=== PATIENT | male | born 1945 | race Caucasian/White ===

== ENCOUNTER 2016-11-12 01:51 | Day surgery (SDC) | payer MEDICARE ==
[~2016-11-12] VITALS: Ht 180.3 cm; Wt 107.2 kg
[2016-11-12] VITALS (16 sets, daily range): BP systolic 127–166; BP diastolic 59–98; PULSE 85–94; RESP 14–21; O2SAT 88–95
[~2016-11-12 01:51] MED LIST: ALBU18HF INH; BUPR150T8 PO; BUTA1CAP42 PO; INSU100C8 SUBQ; INSU100V27 SQ; LEVO200T6 PO; LEVO50TA83 PO; LIOT5TAB6 PO; LISI-567 PO; LTRS15C EXT; MULT1CAP33 PO; NPH,100V10 SUBQ; PARO40TA3 PO; PRAV40TA PO; SELE200T11 PO
[2016-11-12] MEDS ORDERED: 0.9% Sodium Chloride 500 ML IV SCH ×2 (07:10→10:00)
[2016-11-12] MEDS ORDERED: Insulin Human REGular-Omnicell 100 Unit/mL ONE (08:03)
--- NOTE | 2016-11-12 09:48 | NUR ---
Admitted for a heart cath today by Dr Ch for a positive stress test, and chronic shortness of breath with any exertion. RBS of 277 checked at bedside and a documented issue with IV contrast per remote history per patient - states, "shut down my kidney's" Pt could not remember the year he had this response to contrast. Dr Ch notified of the RBS and the IV contrast complication. NS 500cc bolus given - to pre-hydrate prior to receiving contrast. Regular insulin 5 Units given prior to procedure. Pt has a history of a prostate surgery and since that removal has been having to wear a attends. Condom catheter placed for today's procedure.
[2016-11-12] MEDS ORDERED: Nitroglycerin 50,000 mcg/250 mL D5W Premix IV ONE (09:58)
[2016-11-12] MEDS ORDERED: Heparin 5,000 Units/500 mL NS Premix IV ONE (09:58)
[2016-11-12] MEDS ORDERED: Heparin 1,000 Units/500 mL NS Premix IV ONE (09:58)
[2016-11-12] MEDS ORDERED: Heparin 1,000 Unit/mL 10 mL Inj ONE (09:58)
[2016-11-12] MEDS ORDERED: 0.9% Sodium Chloride 1,000 ML IV ONE (10:00)
[2016-11-12] MEDS ORDERED: fentaNYL-PF 50 mCg/mL 2 mL Inj ONE (10:15)
[2016-11-12] MEDS ORDERED: Atropine 1 mg/10 mL (Code) Syringe ONE (10:51)
--- NOTE | 2016-11-12 11:40 | DI95 ---
[address] [address] INTERVENTIONAL CARDIAC CATHETERIZATION PATIENT: LUZMA HANNA : 1945 MR#: [id number] ADMIT: 11/12/2016 JOB ID: [id number] DATE: 11/12/2016 PROCEDURE: Percutaneous intervention on the right coronary artery. INDICATION: Abnormal stress test. PROCEDURAL DETAILS: The procedure was done via right femoral approach using a 6-Nauruan system. A Run-through wire was used to cross a tight 90% lesion in the mid to proximal RCA. This appears to be at least moderately calcified. This lesion was pre-dilated with a 1.5 and a 2.0 balloon. The 2.0 balloon would not cross. We changed to a 1.5 balloon. The lesion did not yield with a 1.5 balloon. At this point, we decided to terminate the procedure. The patient will be brought back at a subsequent date and we will do a rotablation of his right coronary artery. Case was discussed with Dr. Ch.
[2016-11-12] MEDS ORDERED: 0.9% Sodium Chloride 1,000 ML IV PRN (11:47)
[2016-11-12] MEDS ORDERED: 0.9% Sodium Chloride 1,000 ML IV SCH (11:47)
[2016-11-12] MEDS ORDERED: 0.9% Sodium Chloride 250 ML IV PRN (11:47)
--- NOTE | 2016-11-12 11:49 | NUR ---
Received Received from stores laborer at 1135. VSS. Right groin stable. Denies pain. IVF per orders. Family at bedside. Groin precautions reviewed and verbalizes understanding frequent reminders given. SPO2 92-96% on O2 at 3L BNC and states feels like he is breathing ok. Taking po without nausea. Continue to monitor per orders.
[2016-11-12] MEDS ORDERED: Atropine 1 mg/10 mL (Code) Syringe IVPUSH PRN (11:50)
[2016-11-12] MEDS ORDERED: Ondansetron 2 mg/mL 2 mL Inj IVPUSH PRN (11:50)
[2016-11-12] MEDS ORDERED: HYDROcodone-APAP 5-325 mg Tablet PO PRN (11:50)
--- NOTE | 2016-11-12 16:20 | NUR ---
Discharged from [facility] following a recovery post heart cath and additional post IV hydration post heart cath. Planned BMP draw as outpatient tomorrow 11/13/16 - lab slip given. Home care instructions reviewed with both patient and patient's [id number] - Haley. Patient is to return for a planned intervention with Dr Stafford for a lesion in his RCA. Dr Stafford's office to contact patient at his home with a date and time for this procedure. Right groin puncture site is sealed with a Perclose device - post heart cath. Right femoral artery site is soft and non-tender at time of discharge from [facility]. Heart Rhythm is in the 90's - No ectopy and no chest pain/pressure. Sa02 at time of Discharge on room air without physical exertion is 90. Advised pt to follow up with his PCP regarding evaluation of oxygenation during the day - Patient has a C-pap at night.
[2016-11-20] MEDS ORDERED: SELE200T11 PO (14:54)
[2016-11-20] MEDS ORDERED: BUTA1CAP44 PO (14:54)
--- NOTE | 2017-01-26 15:15 | CS94 ---
[address] [address] DIAGNOSTIC CARDIAC CATHETERIZATION PATIENT: LUZMA HANNA : 1945 MR#: [id number] ADMIT: 11/12/2016 JOB ID: [id number] SERVICE DATE: 11/12/2016 INDICATION: The patient is a delightful, 71-year-old male who came in with symptoms of exertional chest heaviness and shortness of breath. The patient underwent a stress test which demonstrated reversible perfusion defect in the inferior, inferolateral wall. Based on those findings, we decided to proceed with coronary angiography. CONSENT: The patient was explained the risks, benefits, and alternatives of the procedure. Informed signed consent was obtained and placed in the chart. PROCEDURE: Patient was brought to the general laborer and placed on the cath table. Both groins were prepped and draped in the usual sterile manner. One percent lidocaine was inserted in the right groin area. The topical anesthesia was obtained. Using a modified Seldinger technique, a 6-[place]zech arterial sheath was placed in the right femoral artery with no difficulty. The FL4 catheter was used to engage the left main coronary artery. Multiple views of the left coronary artery were obtained in multiple projections. Subsequently, FR4 catheter was used to engage the right coronary artery and multiple views of the right coronary artery were obtained in multiple projections. A pigtail catheter was advanced in the LV and placed in the left ventricle. Left ventricular hemodynamics were obtained. FINDINGS: Left ventricular hemodynamics: The left ventricular pressure was 169/9 with left ventricular end-diastolic pressure of 21 mmHg. There was no left ventricular to aortic gradient. CORONARY ANGIOGRAPHY: The left main coronary artery is moderate-sized vessel which bifurcates into left anterior descending artery and left circumflex coronary artery. The left anterior descending artery is mildly diffusely calcified in the proximal mid and distal segments. No high-grade stenosis was noted in the left anterior descending artery. The diagonal branches are identified which bifurcate into superior and inferior limb. Again, no significant disease was noted. The left circumflex is a small to medium sized vessel, which is mildly diffusely diseased in the proximal segment. The OM branches arising from the left circumflex again demonstrate no significant disease. The right coronary artery is a dominant vessel which is very heavily calcified in the mid RCA with a focal stenosis of 70% to 80%. The PDA and posterolateral branches are identified and demonstrate no significant stenosis. The KIRA-3 flow is mildly reduced in the right coronary artery. IMPRESSION: 1. Single-vessel coronary artery disease with a focal stenosis of 70% to 80% of the mid RCA with heavy calcification. 2. Mild diffuse calcification of the left anterior descending artery and left circumflex coronary artery. 3. Elevated left ventricular end-diastolic pressure of 21 mmHg.
== END 2016-11-12 23:59 | disposition home or self-care (01) ==
LOC: SOUO 01:51
PROVIDERS: ATTEND Internal Medicine Cardiovascular Disease
DX: I25.10 Atherosclerotic heart disease of native coronary artery without angina pectoris (principal); I25.84 Coronary atherosclerosis due to calcified coronary lesion; E10.9 Type 1 diabetes mellitus without complications; E78.5 Hyperlipidemia, unspecified; I10 Essential (primary) hypertension; G47.33 Obstructive sleep apnea (adult) (pediatric); E03.9 Hypothyroidism, unspecified; Z72.0 Tobacco use
CPT/HCPCS: 92920; 93458; 99152; 99153; C1725; C1760; C1769; C1887; J1644; J1815; J2250; J3010; J7030; Q9967

== ENCOUNTER 2016-11-21 00:10 | Day surgery (SDC) | payer MEDICARE ==
[2016-11-21] VITALS (16 sets, daily range): BP systolic 136–157; BP diastolic 60–80; PULSE 74–92; RESP 14–24; O2SAT 85–98
[~2016-11-21] VITALS: Ht 177.8 cm; Wt 107.3 kg
[~2016-11-21 00:10] MED LIST changes: -BUTA1CAP42 PO; +BUTA1CAP44 PO
[2016-11-21] MEDS ORDERED: 0.9% Sodium Chloride 500 ML IV ONE (08:55)
[2016-11-21 13:10] LABS: BASOPHILS % (AUTO) 0.3 % (0-3); EOSINOPHILS % (AUTO) 6.8 % (0-5); MONOCYTES % (AUTO) 6.5 % (4-12); Mean Corpuscular Hemoglobin 32.3 pg (27.0-35.0); Mean Corpuscular Volume 96.1 fL (81-100); NEUTROPHILS % (AUTO) 71.7 % (40-74); Platelet Count 190 bil/L (150-400)
[2016-11-21] MEDS ORDERED: Heparin 1,000 Unit/mL 10 mL Inj ONE ×2 (13:43→14:05)
[2016-11-21] MEDS ORDERED: Heparin 1,000 Units/500 mL NS Premix IV ONE (13:43)
[2016-11-21] MEDS ORDERED: Heparin 5,000 Units/500 mL NS Premix IV ONE (13:43)
[2016-11-21] MEDS ORDERED: Nitroglycerin 50,000 mcg/250 mL D5W Premix IV ONE (14:05)
[2016-11-21] MEDS ORDERED: Verapamil 2.5 mg/mL 2 mL Inj ONE (14:05)
[2016-11-21] MEDS ORDERED: Atropine 1 mg/10 mL (Code) Syringe ONE (14:05)
[2016-11-21] MEDS ORDERED: 0.9% Sodium Chloride 1,000 ML ONE (14:06)
[2016-11-21] MEDS ORDERED: Phenylephrine/NS-PF 100 mCg/mL 5 mL Syringe IVPUSH ONE (14:39)
[2016-11-21] MEDS ORDERED: fentaNYL-PF 50 mCg/mL 2 mL Inj ONE (14:41)
--- NOTE | 2016-11-21 17:28 | DI95 ---
[address] [address] INTERVENTIONAL CARDIAC CATHETERIZATION PATIENT: LUZMA HANNA : 1945 MR#: [id number] ADMIT: 11/21/2016 JOB ID: [id number] PROCEDURE: Rotablation followed by stenting of the right coronary artery. HISTORICAL DETAILS: This gentleman has a heavily calcified lesion in the mid right coronary artery. The right coronary artery is a large dominant vessel. This lesion was not amenable to balloon angioplasty. The patient came in today for a planned rotablation of his right coronary artery. PROCEDURAL DETAILS: The procedure was done via right femoral approach using a 7-[place] Yudi guide. A Runthrough wire and a FineCross catheter were used to cross this lesion. The FineCross catheter did not go across this lesion; however it allowed us to use a Rota wire to cross this lesion. Following that, a 1.25 bridger was used to cross this lesion. It was fairly difficult even for this small bridger to cross this lesion. Nevertheless, it modified the lesion enough for us to deliver a 2.0 balloon and then subsequently larger diameter balloons. Following that, a 4.0 x 15 mm stent was placed in the mid RCA and a 4 x 18 mm stent proximal to it. Because of heavy calcification there was a slight geographic miss which was tackled with a 4.0 x 8 mm overlapping stent. Final angiographic results in this vessel were excellent. The patient is advised to stay on dual antiplatelet therapy for at least six months preferably one year post procedure.
[2016-11-21] MEDS ORDERED: Albuterol 2.5 mg/3 mL Inhalation Solution NEB PRN (19:25)
--- NOTE | 2016-11-21 20:18 | NUR ---
MATTY Admit to [facility] bed 7 at 1230. Son at bedside. Patient denies pain. HL x 2 placed and labs obtained. Consent pr . History and medication reviewed. patient poor historian and unsure of what medications he takes. Did not bring an up to date list. Bolos with 500 cc NS as ordered. Condom cath placed. Pre-procedure teaching done and questions answered. Return from woods laborer at 1635. Perclose to right groin. No bleeding or hematoma. Pedal pulses present. Continues to deny pain. Bedrest x 2 hours. Taking PO. Condom cath dislodged and patient incontinent urine. Bedding changed and brief applied. Transferred to room 2004 at 1945. Report to receiving RN.
[2016-11-21] MEDS: Insulin REGULAR SS Low-Dose SUBQ SCH (20:45)
--- NOTE | 2016-11-21 20:45 | NUR ---
Transfer from [facility] to [facility] Room 2004 Pt arrived to room 2004 at approximately 2044 in a bed from [facility]. Pt had a new bag of NS hanging. Groin site was slightly bruised and has a bio-occlusive dressing with dry gauze that has no drainage on it at this time. Groin site is soft and non-tender. Pt had already eaten and was tolerating PO intake prior to transfer. Pt had already been up out of bed when pt transferred from one bed to another prior to transfer to the unit. Pt is slightly weak and unsteady on feet when up at this time. VSS, AOx3, MYERS.
[2016-11-21] MEDS ORDERED: PARoxetine 20 mg Tablet PO SCH (21:00)
[2016-11-21] MEDS ORDERED: Clopidogrel 300 mg Tablet (LOADING DOSE) PO ONE (21:25)
[2016-11-21] MEDS ORDERED: 0.9% Sodium Chloride 250 ML BOLUS IV PRN (21:25)
[2016-11-21] MEDS ORDERED: Sodium Chloride LOK Flush 10 mL Syringe IVFLUSH PRN (21:25)
[2016-11-21] MEDS ORDERED: Atropine 1 mg/10 mL (Code) Syringe IVPUSH PRN (21:25)
[2016-11-21] MEDS ORDERED: Ondansetron 2 mg/mL 2 mL Inj IVPUSH PRN (21:25)
[2016-11-21] MEDS ORDERED: 0.9% Sodium Chloride 400 ML (4 HRS) IV ONE (21:25)
[2016-11-22] MEDS: Insulin REGULAR SS Low-Dose SUBQ SCH ×3 (03:00→12:53)
[2016-11-22 04:00] VITALS: BP 152/86; PULSE 80; RESP 22; O2SAT 89
[2016-11-22 05:21] VITALS: PULSE 89
[2016-11-22 08:40] VITALS: BP 159/73; PULSE 102; RESP 16; O2SAT 91
--- NOTE | 2016-11-22 09:51 | PCM.DIMED ---
Discharge Instructions Date of Service November 22, 2016 Dates of Hospitalization 11/21/2016 Discharge Diagnosis Discharge Diagnosis 1. coronary artery disease 2. stenosis of right coronary artery 3. treated with drug-eluting stents Medication Instructions 1. continue aspirin 81 mg daily 2. start new medicine Plavix (also known as Clopidogrel). This medicine prevents stents from clotting off. DO NOT stop this medicine unless instructed to do so by cardiology. Failure to take this medicine is LIFE threatening. If you have problem accessing this medicine call our clinic [phone]. The EARLIEST day when you can safely stop Plavix is 05/24/2017. Ideally we do 1 year , so until 11/21/2017. 3. Pravastatin failed to prevent blockage. Instead we will be starting Atorvastatin (also known as Lipitor). Side effects include muscle aches. If it bothers you, notify the clinic. Diet Heart Healthy Activity Other (do not lift anything over 10 lbs for 1 week) Call your provider Shortness of breath, Bleeding, Chest pain Patient Instructions f/u with Dr. Velarde in about 1 month. His sales service assistant will call you to schedule. If you don't hear from her, please call clinic [phone] Mary Gomes MD November 22, 2016 09:51
[2016-11-22] MEDS ORDERED: CLOP75TA28 PO (09:54)
[2016-11-22] MEDS ORDERED: ASPI81TA3 PO (09:54)
[2016-11-22] MEDS ORDERED: LIP40 PO (09:54)
[2016-11-22 10:04] VITALS: PULSE 94
--- NOTE | 2016-11-22 10:59 | DIS ---
[address] [address] DISCHARGE SUMMARY PATIENT: LUZMA HANNA : 1945 MR#: [id number] ADMIT: 11/21/2016 JOB ID: [id number] DIS: 11/22/2016 DISCHARGE DIAGNOSES: 1. Coronary artery disease status post rotational atherectomy. 2. Also she had three drug-eluting stents deployed to the right coronary artery. HOSPITAL COURSE: The patient was admitted electively from home for cardiac catheterization and intervention to right coronary artery. His lesion was quite complex and required rotational atherectomy. He received 4 x 18 mid RCA stent, 4 x 15 more proximal RCA stent and 4 x 8 overlapping stent with excellent angiographic result. The patient was started on dual antiplatelet therapy and tolerated this medication well. Pravastatin was stopped. Lipitor was initiated. The patient tolerated this transition well. He had no events on telemetry. Labs were significant for hyperglycemia and the patient is committed to working on his glycemic control at home. Therefore, the patient was sent home in stable condition on the following medications: 1. Aspirin 81 mg daily-continue. 2. Plavix 75 mg daily-new medication. The patient is instructed on the importance of medication compliance and the life-threatening consequences should he skip this medicine. 3. Pravastatin was discontinued due to lack of efficacy. 4. Lipitor 40 mg daily was started. 5. The patient was continued on his other home medications including: a. Lisinopril 20 mg daily. b. Wellbutrin 150 mg daily. c. Zebutal 1 capsule every 6 hours as needed. d. Paxil 40 mg daily. e. Selenium supplement. f. Aspart insulin. g. NPH insulin. h. Cytomel 5 mg every two days. i. Levothyroxine 250 mcg daily. j. Regular insulin as instructed by primary care provider. I recommended he follow up with Dr. Velarde as an outpatient to discuss medical management further. Of note, 45 minutes were spent facilitating the patient's discharge and facilitating communication in the outpatient clinic to get a follow up visit.
--- NOTE | 2016-11-22 13:07 | NUR ---
Discharge Pt left with son at 1300 via private car. IV and tele removed. All new medications gone over and understood along with changes in home medications. Pt ate and received insulin prior to leaving. All belongings taken with, vitals stable, A&Ox3. Discharge instructions gone over and understood. Right groin site soft and non tender with minimal bruising.
== END 2016-11-22 12:53 | disposition home or self-care (01) ==
LOC: SOUO 00:10 → PCC 19:05 → SOUO 11-22 12:53
PROVIDERS: ATTEND Internal Medicine Cardiovascular Disease
DX: I25.10 Atherosclerotic heart disease of native coronary artery without angina pectoris (principal); I25.84 Coronary atherosclerosis due to calcified coronary lesion; E78.5 Hyperlipidemia, unspecified; E10.65 Type 1 diabetes mellitus with hyperglycemia; G47.33 Obstructive sleep apnea (adult) (pediatric); E03.9 Hypothyroidism, unspecified; Z79.82 Long term (current) use of aspirin; Z79.4 Long term (current) use of insulin
CPT/HCPCS: 36415; 80048; 85025; 93005; 99152; 99153; C1724; C1725; C1760; C1769; C1874; C1887; C9602; J0461; J1200; J1644; J1815; J2060; J2250; J3010; J7030; Q9967